=== PATIENT | female | born 1955 | race Caucasian/White ===

== ENCOUNTER 2021-03-31 13:09 | Outpatient (RCR) | payer MEDICARE, OTHER, SELFPAY ==
[2021-03-31] MEDS: Heparin 500 UNITS/5 ML SYRINGE (13:50)
[2021-03-31] MEDS: Normal Saline Flush 10 ML SYR IVP (13:51)
[2021-03-31 13:58] LABS: Abs Immature Grans 0.19 10^3/uL (0.0-0.06); Absolute Basophil Count 0.01 10^3/uL (0.0-0.2); Absolute Lymphocyte Count 0.05 10^3/uL (1.2-3.4); Absolute Neutrophil Count 10.91 10^3/uL (1.2-6.7); Basophils % 0.1; HCT 32.7 % (36.0-46.0); HGB 9.6 g/dL (11.2-15.7); Immature Grans % 1.7; Lymphocytes % 0.4; MCH 20.8 pg (27.0-33.0); MCHC 29.4 % (32.0-36.0); MCV 70.8 fL (80-95); Monocytes % 1.2; Neutrophils % 96.6; Nucleated RBC 0 %; Platelet Count 132 10^3/uL (130-400); RBC 4.62 10^6/uL (3.93-5.22); RDW-SD 46.3 fL; Reticulocyte 1.8 % (0.5-2.4); WBC 11.29 10^3/uL (4.4-10.8)
[2021-03-31 14:00] LABS: Absolute Monocyte Count 0.14 10^3/uL (0.1-0.8)
[2021-03-31 14:17] LABS: ALT 44 U/L (14-59); AST 11 U/L (15-37); Alkaline Phosphatase 54 U/L (46-116); Anion Gap 11.4 mmol/L (3-11); BUN 43 mg/dL (7-18); Bilirubin, Total 1.3 mg/dL (0.2-1.0); CO2 22.6 mmol/L (21.0-32.0); CREATININE 1.1 mg/dL (0.55-1.02); Calcium 8.5 mg/dL (8.5-10.1); Chloride 107 mmol/L (98-107); Estimated GFR 49.54 (mL/min/1.73m2); Glucose 276 mg/dL (74-106); LDH 194 U/L (81-234); Potassium 4.4 mmol/L (3.5-5.1); Sodium 141 mmol/L (136-145); Total Protein 5.7 g/dL (6.4-8.2)
[2021-03-31 14:20] LABS: Basophilic Stippling Present; Diff Comment Diff Reviewed; Microcytosis 1+
== END 2021-04-26 23:59 | disposition home or self-care (01) ==
LOC: INF 13:09
PROVIDERS: Visit Provider Internal Medicine Hematology & Oncology
DX: D64.9 Anemia, unspecified (principal); Z45.2 Encounter for adjustment and management of vascular access device; M31.1 Thrombotic microangiopathy; E83.111 Hemochromatosis due to repeated red blood cell transfusions
CPT/HCPCS: 36591; 80053; 83615; 85025; 85045

== ENCOUNTER 2021-05-12 10:30 | Outpatient (RCR) | payer MEDICARE, OTHER, SELFPAY ==
--- OUTSIDE RECORDS SUMMARY | 2021-04-27 10:50 | XMS_ITS ---
:1955 Author Care Team Providers Name Role Phone DEDRICK CHRISTIANSON MD Primary Care Provider [phone] SHAYY FOREMNA MD Urologist [phone] ALMITA CADENA MD Primary Care Provider [phone] JENNIFER VEGA General Surgeon [phone] Allergies Code Code System Name Reaction Severity Status Onset 2670 RxNorm Codeine ? ? Active ? Penicillins ? ? Active ? Medications Name Status Start Date Stop Date ? ? doxycycline monohydrate 100 mg Completed ? 1 12/03/2018 capsule fluticasone propionate 50 Completed ? 2018 mcg/actuation nasal spray,suspension folic acid Active 09/30/2019 Not available levofloxacin 750 mg tablet Completed ? 10/18 levothyroxine Active 09/30/2019 Not available 50 mcg (two days) and then 75 mcg as well for the rest of the [place] levothyroxine 50 mcg tablet Active 10/18/2019 Not available levothyroxine 75 mcg tablet Active ? Not available oxycodone 5 mg tablet Completed ? 10/18/2019 prednisone 10 mg tablet Active ? Not avai lable Vitamin D3 Active 09/30/2019 Not available Notes: Med Rec 09/30 Problems None recorded. Procedures Date Name Performed by ? 09/29/2019 Cholecystectomy Information not avai lable Notes: acute cholcystitis, chronic ch olecystitis 11/27/1959 Tonsilectomy/adenoids Information not av ailable 10/01/2019 MR, Cholangiopancreatogram, W/o [facility] Radiology (Internal) Contrast [address] [place] [address] (Work Place) 10/03/2019 US, Renal [facility] Radiology (Internal) [address] [place] [address] (Work Place) Results Lab Results Date Name Specimen Result Interpretation Description Value Range Status Address ? 11/25/2019 Neutrophil BLD - Anc-manual 9.41 ? Etta melton [place] Count, 10*3/uL [facility] Lab (Anc), Blood (Int ernal): [address] 11/25/2019 Differential BLD High Polys 95 % 40-75 % Final [facility] L ab (Internal) : [address] ? ? BLD - Bands 1 % 0-5 % Final [facility] L ab (Internal) : [address] [place] ? ? BLD Low Lymphs 4 % 20-50 % Final [facility] L ab (Internal) : [address] ? ? BLD Low Jerauld 0 % 2-10 % Final [facility] L ab (Internal) : [address] ? ? BLD - Eos 0 % 0-6 % Final [facility] L ab (Internal) : [address] ? ? BLD - Baso 0 % 0-1 % Final [facility] L ab (Internal) : [address] ? ? BLD - Atyp Lymph 0 % ? Final [facility] L ab (Internal) : [address] ? ? BLD - Plts, Est. adequate adequate Final [facility] L ab (Internal) : [address] ? ? BLD ABNORMAL RBC abnormal normal Final [facility] L ab (Internal) : [address] ? ? BLD - Aniso moderate ? Final [facility] L ab (Internal) : [address] ? ? BLD - Hypo small ? Final [facility] L ab (Internal) : [address] ? ? BLD - Micro small ? Final [facility] L ab (Internal) : [address] ? ? BLD - Polychrom occasional ? Final No [facility] L ab (Internal) : [address] ? ? BLD - Schist rare ? Final [facility] L ab (Internal) : [address] ? ? BLD - Target occasional ? Final [facility] L ab (Internal) : [address] ? ? BLD - Teardrop occasional ? Final [facility] L ab (Internal) : [address] ? ? BLD - Oval small ? Final [facility] L ab (Internal) : [address] 11/25/2019 Ldh, Serum S - Ldh 470 U/L 313-618 Final [place] or Plasma U/L [facility] L ab (Internal) : [address] 11/25/2019 CMP, Serum S High g/r 119 mg/dL 74-106 Final [place] or Plasma mg/dL [facility] L ab (Internal) : [address] ? ? S High Bun 27 mg/dL 7-17 Final [place] mg/dL [facility] L ab (Internal) : [address] ? ? S - Crea 0.90 mg/dL 0.52-1.0 Final Nort h 4 mg/dL [facility] L ab (Internal) : [address] ? ? S - Ca 9.3 mg/dL 8.4-10.2 Final [place] mg/dL [facility] L ab (Internal) : [address] ? ? S - Na 141 mmol/L 137-145 Final [place] mmol/L [facility] L ab (Internal) : [address] ? ? S - K 4.3 mmol/L 3.5-5.1 Final [place] mmol/L [facility] L ab (Internal) : [address] ? ? S - Cl 106 mmol/L 98-107 Final [place] mmol/L [facility] L ab (Internal) : [address] ? ? S - Tco2 24.0 mmol/L 22.0-30. Final Nor th 0 mmol/L [facility] Hospital L ab (Internal) : [address] ? ? S - Tp 7.2 g/dL 6.3-8.2 Final [place] g/dL [facility] L ab (Internal) : [address] ? ? S - Alb 3.8 g/dL 3.5-5.0 Final [place] g/dL [facility] L ab (Internal) : [address] ? ? S - Tbil 0.9 mg/dL 0.2-1.3 Final [place] mg/dL [facility] L ab (Internal) : [address] ? ? S - Alp 61 U/L 38-126 Final [place] U/L [facility] L ab (Internal) : [address] ? ? S - Alt (Sgpt) 27 U/L 9-52 U/L [facility] (Internal[facility] : [address] ? ? S - Ast (Sgot) 22 U/L 14-36 Final [place] U/L [facility] L ab (Internal) : [address] 11/25/2019 CBC W/ Auto BLD - Wbc 9.8 10*3/uL 5.0-10.0 F inal [place] Diff 10*3/uL [facility] (Internal) : [address] ? ? BLD High Rbc 6.00 4.10-5.3 Final [place] 10*6/uL 0 [facility] 10*6/uL Hospital Lab (Internal) : [address] ? ? BLD Low Hgb 11.4 g/dL 12.0-16. Final [place] 0 g/dL [facility] L ab (Internal) : [address] ? ? BLD - Hct 39.5 % 37.0-47. Final [place] 0 % [facility] L ab (Internal) : [address] ? ? BLD Low Mcv 65.8 fL 80.0-96. Final [place] 0 fL [facility] L ab (Internal) : [address] ? ? BLD Low Mch 19.0 pg 26.0-32. Final [facility] 0 pg [facility] (Internal) : [address] ? ? BLD Low Mchc 28.9 g/dL 31.0-35. Final [place] 0 g/dL [facility] L ab (Internal) : [address] ? ? BLD High Rdw 19.9 % 11.5-14. Final [place] 5 % [facility] L ab (Internal) : [address] ? ? BLD - Plt 210 10*3/uL 130-450 Final Nort h 10*3/uL [facility] (Internal) : [address] 10/07/2019 CBC W/ Auto BLD - Wbc 9.9 10*3/uL 5.0-10.0 F inal [place] Diff 10*3/uL [facility] L [facility] (Internal) : [address] ? ? BLD - Rbc 5.13 4.10-5.3 Final [place] 10*6/uL 0 [facility] 10*6/uL Hospital Lab (Internal) : [address] ? ? BLD Low Hgb 9.6 g/dL 12.0-16. Final [facility] 0 g/dL [facility] L [facility] (Internal) : [address] ? ? BLD Low Hct 31.6 % 37.0-47. Final [facility] 0 % [facility] (Internal) : [address] ? ? BLD Low Mcv 61.6 fL 80.0-96. Final [facility] 0 fL [facility] L [facility] (Internal) : [address] ? ? BLD Low Mch 18.7 pg 26.0-32. Final [facility] 0 pg [facility] L [facility] (Internal) : [address] ? ? BLD Low Mchc 30.4 g/dL 31.0-35. Final [place] 0 g/dL [facility] L ab (Internal) : [address] ? ? BLD High Rdw 19.0 % 11.5-14. Final [facility] 5 % [facility] (Internal) : [address] ? ? BLD Low Plt 106 10*3/uL 130-450 Final Nort h 10*3/uL [facility] L [facility] (Internal) : [address] ? ? BLD - Anc 7.31 ? Final [facility] 10*3/uL [facility] (Internal) : [address], [address] ? ? BLD - Neutro 74.2 % 40.0-75. Final [place] 0 % [facility] L ab (Internal) : [address], [address] ? ? BLD Low Lymph 14.9 % 20.0-50. Final [facility] 0 % [facility] (Internal) : [address], [place] ? ? BLD - Jerauld 9.2 % 2.0-10.0 Final [facility] L ab (Internal) : [address] ? ? BLD Low Eos 0.1 % 1.0-6.0 [facility] L ab (Internal) : [address] ? ? BLD - Baso 0.1 % 0.0-1.0 Final [facility] L ab (Internal) : [address] ? ? BLD High Ig 1.5 % 0.0-0.9 Final [facility] L ab (Internal) : [address] 10/07/2019 Retic Count, BLD - Retic 2.1 % 0.5-2.4 Final [facility] L ab (Internal) : [address] 10/07/2019 RBC BLD - Aniso small ? Final [place] Morphology, Count [facility] L ab (Internal) : [address] ? ? BLD - Micro small ? Final [facility] L ab (Internal) : [address] ? ? BLD - Polychrom rare ? Final [facility] L ab (Internal) : [address] ? ? BLD - Schist rare ? Final [facility] L ab (Internal) : [address] ? ? BLD - Sphrcyt rare ? Final [facility] L ab (Internal) : [address] ? ? BLD - Target rare ? Final [facility] L ab (Internal) : [address] ? ? BLD - Teardrop occasional ? Final [facility] L ab (Internal) : [address] ? ? BLD - Oval occasional ? Final [facility] L ab (Internal) : [address] 10/07/2019 CMP, Serum S - g/r 92 mg/dL 74-106 Final [place] or Plasma mg/dL [facility] L ab (Internal) : [address] ? ? S High Bun 28 mg/dL 7-17 Final [place] mg/dL [facility] L ab (Internal) : [address] ? ? S - Crea 1.00 mg/dL 0.52-1.0 Final Nort h 4 mg/dL [facility] L [facility] (Internal) : [address] ? ? S - Ca 9.7 mg/dL 8.4-10.2 Final [facility] mg/dL [facility] (Internal) : [address] ? ? S Low Na 136 mmol/L 137-145 Final [place] mmol/L [facility] L ab (Internal) : [address] ? ? S - K 3.7 mmol/L 3.5-5.1 Final [facility] mmol/L [facility] (Internal) : [address] ? ? S - Cl 103 mmol/L 98-107 Final [place] mmol/L [facility] L ab (Internal) : [address] ? ? S - Tco2 26.0 mmol/L 22.0-30. Final [facility] 0 mmol/L [facility] L ab (Internal) : [address] ? ? S - Tp 8.2 g/dL 6.3-8.2 Final [facility] g/dL [facility] (Internal) : [address] ? ? S - Alb 3.8 g/dL 3.5-5.0 Final [place] g/dL [facility] L ab (Internal) : [address] ? ? S - Tbil 1.2 mg/dL 0.2-1.3 Final [place] mg/dL [facility] L ab (Internal) : [address] ? ? S - Alp 108 U/L 38-126 Final [place] U/L [facility] L ab (Internal) : [address] ? ? S - Alt (Sgpt) 44 U/L 9-52 U/L Final [facility] (Internal) : [address] ? ? S - Ast (Sgot) 32 U/L 14-36 Final [place] U/L [facility] L ab (Internal) : [address] 10/07/2019 Ldh, Serum S - Ldh 482 U/L 313-618 Final [place] or Plasma U/L [facility] L ab (Internal) : [address] 10/04/2019 CBC W/ Auto BLD - Wbc 7.2 10*3/uL 5.0-10.0 F inal [place] Diff 10*3/uL [facility] L ab (Internal) : [address] ? ? BLD High Rbc 5.42 4.10-5.3 Final [place] 10*6/uL 0 [facility] 10*6/uL Hospital Lab (Internal) : [address] ? ? BLD Low Hgb 10.0 g/dL 12.0-16. Final [place] 0 g/dL [facility] L ab (Internal) : [address] ? ? BLD Low Hct 33.5 % 37.0-47. Final [place] 0 % [facility] L ab (Internal) : [address] ? ? BLD Low Mcv 61.8 fL 80.0-96. Final [place] 0 fL [facility] L ab (Internal) : [address] ? ? BLD Low Mch 18.5 pg 26.0-32. Final [place] 0 pg [facility] L ab (Internal) : [address] ? ? BLD Low Mchc 29.9 g/dL 31.0-35. Final [place] 0 g/dL [facility] L ab (Internal) : [address] ? ? BLD High Rdw 18.0 % 11.5-14. Final [place] 5 % [facility] L ab (Internal) : [address] ? ? BLD Low Plt 66 10*3/uL 130-450 Final [place] 10*3/uL [facility] L ab (Internal) : [address] ? ? BLD - Anc 5.47 ? Final [place] 10*3/uL [facility] L ab (Internal) : [address] ? ? BLD High Neutro 76.3 % 40.0-75. Final [place] 0 % [facility] L ab (Internal) : [address] ? ? BLD Low Lymph 11.4 % 20.0-50. Final [place] 0 % [facility] L ab (Internal) : [address] ? ? BLD - Jerauld 7.8 % 2.0-10.0 Final [facility] L ab (Internal) : [address] ? ? BLD - Eos 3.3 % 1.0-6.0 Final [facility] L ab (Internal) : [address] ? ? BLD - Baso 0.4 % 0.0-1.0 Final [facility] L ab (Internal) : [address] ? ? BLD - Ig 0.8 % 0.0-0.9 Final [facility] L ab (Internal) : [address] 10/04/2019 Urinalysis, UR - UA-color yellow pale Final [place] Dipstick, yellow [facility] Reflex Micro Hosp ital Lab (Internal) : [address] ? ? UR ABNORMAL UA-appear hazy clear Final [facility] L ab (Internal) : [address] ? ? UR - UA-spec 1.010 1.003-1. Final [place] [facility] [address] [place] [address] L ab (Internal) : [address] ? ? UR - UA-pH 6.0 [pH] 4.6-8.0 Final [place] [pH] [facility] L ab (Internal) : [address] ? ? UR - UA-leuk negative negative Final Nort h [facility] L ab (Internal) : [address] ? ? UR - UA-nitrite negative negative Final N orth [facility] L ab (Internal) : [address] ? ? UR ABNORMAL UA-prot trace negative Final [facility] L ab (Internal) : [address] ? ? UR - UA-gluc negative negative Final [facility] L ab (Internal) : [address] ? ? UR - UA-ketone negative negative Final No rth [facility] L ab (Internal) : [address] ? ? UR ABNORMAL UA-urobil positive normal [facility] [address] ? ? UR - UA-bili negative negative Final [facility] (Internal) : [address] ? ? UR ABNORMAL UA-blood large negative Final [facility] Hospital L ab (Internal) : [address] 10/04/2019 Urinalysis, UR - UA-WBC 0-3 [hpf] 0-3 [facility] Microscopic [hpf] Count Hospital L ab (Internal) : [address] ? ? UR ABNORMAL UA-RBC 50-100 0-2 Final [place] [hpf] [hpf] [facility] Hospital L ab (Internal) : [address] ? ? UR - UA-bacteri none seen none Final No rth a [hpf] seen [facility] [hpf[facility] L ab (Internal) : [address] ? ? UR - UA-epithel rare [hpf] none Final N orth ial seen [facility] [hpf] Hospital L ab (Internal) : [address] ? ? UR - UA-mucus none seen none Final Nort h [hpf] seen [facility] [hpf] Hospital L ab (Internal) : [address] 10/04/2019 RBC BLD - Aniso small ? Final [place] Morphology, Count Blood Hospital L ab (Internal) : [address] ? ? BLD - Micro small ? Final [facility] ab (Internal) : [address] ? ? BLD - Polychrom rare ? Final [facility] ab (Internal) : [address] ? ? BLD - Schist occasional ? Final [facility] L ab (Internal) : [address] ? ? BLD - Sphrcyt rare ? Final [facility] ab (Internal) : [address] ? ? BLD - Teardrop occasional ? Final [facility] Hospital L ab (Internal) : [address] ? ? BLD - Oval occasional ? Final [facility] L ab (Internal) : [address] 10/04/2019 CMP, Serum S - g/r 104 mg/dL 74-106 Final [place] or Plasma mg/dL [facility] Hospital L ab (Internal) : [address] [place] ? ? S High Bun 20 mg/dL 7-17 Final [facility] mg/dL [facility] (Internal) : [address] ? ? S - Crea 1.00 mg/dL 0.52-1.0 Final Nort h 4 mg/dL [facility] L ab (Internal) : [address] ? ? S - Ca 9.6 mg/dL 8.4-10.2 Final [facility] mg/dL [facility] L ab (Internal) : [address] ? ? S Low Na 135 mmol/L 137-145 Final [place] mmol/L [facility] L ab (Internal) : [address] ? ? S - K 3.6 mmol/L 3.5-5.1 Final [place] mmol/L [facility] L ab (Internal) : [address] ? ? S - Cl 100 mmol/L 98-107 Final [place] mmol/L [facility] L ab (Internal) : [address] ? ? S - Tco2 27.0 mmol/L 22.0-30. Final Nor th 0 mmol/L [facility] Hospital L ab (Internal) : [address] ? ? S - Tp 8.1 g/dL 6.3-8.2 Final [place] g/dL [facility] Hospital L ab (Internal) : [address] ? ? S - Alb 3.7 g/dL 3.5-5.0 Final [place] g/dL [facility] Hospital L ab (Internal) : [address] ? ? S High Tbil 1.8 mg/dL 0.2-1.3 Final [place] mg/dL [facility] Hospital L ab (Internal) : [address] ? ? S High Alp 154 U/L 38-126 Final [place] U/L [facility] L ab (Internal) : [address] ? ? S High Alt (Sgpt) 78 U/L 9-52 U/L Final [facility] (Internal) : [address] ? ? S High Ast (Sgot) 77 U/L 14-36 Final [place] U/L [facility] L ab (Internal) : [address] 10/02/2019 CMP, Serum S High g/r 113 mg/dL 74-106 Final [place] or Plasma mg/dL [facility] L ab (Internal) : [address] ? ? S - Bun 16 mg/dL 7-17 Final [place] mg/dL [facility] L ab (Internal) : [address] ? ? S - Crea 0.90 mg/dL 0.52-1.0 Final Nort h 4 mg/dL [facility] L ab (Internal) : [address] ? ? S - Ca 9.7 mg/dL 8.4-10.2 Final [facility] mg/dL [facility] L [facility] (Internal) : [address] ? ? S Low Na 136 mmol/L 137-145 Final [place] mmol/L [facility] L ab (Internal) : [address] ? ? S - K 3.7 mmol/L 3.5-5.1 Final [facility] mmol/L [facility] L ab (Internal) : [address] ? ? S - Cl 99 mmol/L 98-107 Final [place] mmol/L [facility] Hospital L ab (Internal) : [address] ? ? S - Tco2 28.0 mmol/L 22.0-30. Final Nor th 0 mmol/L [facility] L ab (Internal) : [address] ? ? S High Tp 8.7 g/dL 6.3-8.2 Final [facility] g/dL [facility] L ab (Internal) : [address] ? ? S - Alb 3.9 g/dL 3.5-5.0 Final [facility] g/dL [facility] L ab (Internal) : [address] ? ? S High Tbil 2.2 mg/dL 0.2-1.3 Final [facility] mg/dL [facility] L ab (Internal) : [address] ? ? S High Alp 128 U/L 38-126 Final [facility] U/L [facility] L ab (Internal) : [address] ? ? S High Alt (Sgpt) 65 U/L 9-52 U/L Final [facility] L ab (Internal) : [address] ? ? S High Ast (Sgot) 95 U/L 14-36 Final [place] U/L [facility] Hospital L ab (Internal) : [address] 10/02/2019 CBC W/ Auto BLD - Wbc 9.2 10*3/uL 5.0-10.0 F inal [place] Diff 10*3/uL [facility] Hospital L ab (Internal) : [address] ? ? BLD High Rbc 5.90 4.10-5.3 Final [place] 10*6/uL 0 [facility] 10*6/uL Hospital Lab (Internal) : [address] ? ? BLD Low Hgb 10.9 g/dL 12.0-16. Final [place] 0 g/dL [facility] Hospital L ab (Internal) : [address] ? ? BLD Low Hct 36.5 % 37.0-47. Final [place] 0 % [facility] L ab (Internal) : [address] ? ? BLD Low Mcv 61.9 fL 80.0-96. Final [place] 0 fL [facility] L ab (Internal) : [address] ? ? BLD Low Mch 18.5 pg 26.0-32. Final [place] 0 pg [facility] L ab (Internal) : [address] ? ? BLD Low Mchc 29.9 g/dL 31.0-35. Final [place] 0 g/dL [facility] Hospital L ab (Internal) : [address] ? ? BLD High Rdw 18.2 % 11.5-14. Final [place] 5 % [facility] Hospital L ab (Internal) : [address] ? ? BLD Low Plt 76 10*3/uL 130-450 Final [place] 10*3/uL [facility] Hospital L ab (Internal) : [address] 10/02/2019 Differential BLD High Polys 86 % 40-75 % Final [facility] L ab (Internal) : [address] ? ? BLD - Bands 0 % 0-5 % Final [facility] L ab (Internal) : [address] ? ? BLD Low Lymphs 5 % 20-50 % [facility] (Internal) : [address] ? ? BLD - Jerauld 7 % 2-10 % Final [facility] L ab (Internal) : [address] ? ? BLD - Eos 2 % 0-6 % Final [facility] L ab (Internal) : [address] ? ? BLD - Baso 0 % 0-1 % Final [facility] L ab (Internal) : [address] ? ? BLD - Atyp Lymph 0 % ? Final [facility] L ab (Internal) : [address] ? ? BLD ABNORMAL Plts, Est. low adequate Final [facility] L ab (Internal) : [address] ? ? BLD ABNORMAL RBC abnormal normal Final [facility] L ab (Internal) : [address] ? ? BLD - Aniso moderate ? Final [facility] L ab (Internal) : [address] ? ? BLD - Micro large ? Final [facility] L ab (Internal) : [address] ? ? BLD - Schist occasional ? Final [facility] L ab (Internal) : [address] 10/02/2019 Neutrophil BLD - Anc-manual 7.92 ? Etta geronimo [place] Count, 10*3/uL [facility] Lab (Anc), Blood (Int ernal): [address] 10/01/2019 CBC W/ Auto BLD - Wbc 8.1 10*3/uL 5.0-10.0 F inal [place] Diff 10*3/uL [facility] Hospital L ab (Internal) : [address] ? ? BLD High Rbc 5.86 4.10-5.3 Final [place] 10*6/uL 0 [facility] 10*6/uL Hospital Lab (Internal) : [address] ? ? BLD Low Hgb 10.8 g/dL 12.0-16. Final [place] 0 g/dL [facility] Hospital L ab (Internal) : [address] ? ? BLD Low Hct 36.5 % 37.0-47. Final [place] 0 [facility] L ab (Internal) : [address] ? ? BLD Low Mcv 62.3 fL 80.0-96. Final [facility] 0 fL [facility] L ab (Internal) : [address] ? ? BLD Low Mch 18.4 pg 26.0-32. Final [facility] 0 pg [facility] L ab (Internal) : [address] ? ? BLD Low Mchc 29.6 g/dL 31.0-35. Final [place] 0 g/dL [facility] L ab (Internal) : [address] ? ? BLD High Rdw 18.0 % 11.5-14. Final [facility] 5 % [facility] L ab (Internal) : [address] ? ? BLD Low Plt 92 10*3/uL 130-450 Final [place] 10*3/uL [facility] L ab (Internal) : [address] 10/01/2019 CMP, Serum S High g/r 110 mg/dL 74-106 Final [place] or Plasma mg/dL [facility] L ab (Internal) : [address] ? ? S - Bun 14 mg/dL 7-17 Final [place] mg/dL [facility] L ab (Internal) : [address] ? ? S - Crea 0.90 mg/dL 0.52-1.0 Final Nort h 4 mg/dL [facility] L ab (Internal) : [address] ? ? S - Ca 9.6 mg/dL 8.4-10.2 Final [facility] mg/dL [facility] L ab (Internal) : [address] ? ? S - Na 138 mmol/L 137-145 Final [place] mmol/L [facility] L ab (Internal) : [address] ? ? S - K 3.6 mmol/L 3.5-5.1 Final [facility] mmol/L [facility] L ab (Internal) : [address] ? ? S - Cl 101 mmol/L 98-107 Final [place] mmol/L [facility] L ab (Internal) : [address] ? ? S - Tco2 30.0 mmol/L 22.0-30. Final Nor th 0 mmol/L [facility] L ab (Internal) : [address] ? ? S High Tp 8.6 g/dL 6.3-8.2 Final [place] g/dL [facility] L ab (Internal) : [address] ? ? S - Alb 3.8 g/dL 3.5-5.0 Final [place] g/dL [facility] L ab (Internal) : [address] ? ? S High Tbil 1.6 mg/dL 0.2-1.3 Final [place] mg/dL [facility] L ab (Internal) : [address] ? ? S - Alp 96 U/L 38-126 Final [place] U/L [facility] L ab (Internal) : [address] ? ? S - Alt (Sgpt) 44 U/L 9-52 U/L Final [facility] [facility] L [facility] (Internal) : [address] ? ? S High Ast (Sgot) 71 U/L 14-36 Final [place] U/L [facility] L ab (Internal) : [address] 10/01/2019 Differential BLD High Polys 86 % 40-75 % Final [facility] L [facility] (Internal) : [address] ? ? BLD - Bands 0 % 0-5 % Final [facility] L ab (Internal) : [address] ? ? BLD Low Lymphs 9 % 20-50 % Final [facility] L ab (Internal) : [address] ? ? BLD - Jerauld 4 % 2-10 % Final [facility] L ab (Internal) : [address] ? ? BLD - Eos 1 % 0-6 % Final [facility] L ab (Internal) : [address] ? ? BLD - Baso 0 % 0-1 % Final [facility] L ab (Internal) : [address] ? ? BLD - Atyp Lymph 0 % ? Final [facility] L ab (Internal) : [address] ? ? BLD ABNORMAL Plts, Est. low adequate Final [facility] L ab (Internal) : [address] ? ? BLD ABNORMAL RBC abnormal normal Final [facility] L ab (Internal) : [address] ? ? BLD - Aniso moderate ? Final [facility] L ab (Internal) : [address] t ? ? BLD - Hypo occasional ? Final [facility] L ab (Internal) : [address] t ? ? BLD - Poik occasional ? Final [place] [hpf] [facility] L ab (Internal) : [address] t ? ? BLD - Polychrom rare ? Final [facility] L ab (Internal) : [address] t ? ? BLD - Schist occasional ? Final [facility] L ab (Internal) : [address] t ? ? BLD - Teardrop occasional ? Final [facility] L ab (Internal) : [address] t 10/01/2019 Neutrophil BLD - Anc-manual 6.97 ? Etta l [place] Count, 10*3/uL [facility] Lab (Anc), Blood (Int ernal): [address] 09/30/2019 CMP, Serum S - g/r 98 mg/dL 74-106 Final [place] or Plasma mg/dL [facility] L ab (Internal) : [address] t ? ? S - Bun 13 mg/dL 7-17 Final [place] mg/dL [facility] L ab (Internal) : [address] t ? ? S - Crea 0.90 mg/dL 0.52-1.0 Final [place] h 4 mg/dL [facility] L ab (Internal) : [address] t ? ? S - Ca 9.2 mg/dL 8.4-10.2 Final [place] mg/dL [facility] L ab (Internal) : [address] t ? ? S - Na 138 mmol/L 137-145 Final [place] mmol/L [facility] L ab (Internal) : [address] t ? ? S - K 3.8 mmol/L 3.5-5.1 Final [place] mmol/L [facility] L ab (Internal) : [address] t ? ? S - Cl 104 mmol/L 98-107 Final [place] mmol/L [facility] L ab (Internal) : [address] ? ? S - Tco2 26.0 mmol/L 22.0-30. Final [facility] th 0 mmol/L [facility] L ab (Internal) : [address] ? ? S - Tp 8.0 g/dL 6.3-8.2 Final [place] g/dL [facility] L ab (Internal) : [address] ? ? S - Alb 3.6 g/dL 3.5-5.0 Final [place] g/dL [facility] L ab (Internal) : [address] ? ? S High Tbil 1.5 mg/dL 0.2-1.3 Final [place] mg/dL [facility] L ab (Internal) : [address] ? ? S - Alp 87 U/L 38-126 Final [place] U/L [facility] L ab (Internal) : [address] ? ? S - Alt (Sgpt) 39 U/L 9-52 U/L Final [facility] L ab (Internal) : [address] ? ? S High Ast (Sgot) 65 U/L 14-36 Final [place] U/L [facility] L ab (Internal) : [address] 09/30/2019 CBC W/ Auto BLD - Wbc 8.5 10*3/uL 5.0-10.0 F inal [place] Diff 10*3/uL [facility] (Internal) : [address] ? ? BLD High Rbc 5.87 4.10-5.3 Final [place] 10*6/uL 0 [facility] 10*6[facility]uL [facility] Lab (Internal) : [address] ? ? BLD Low Hgb 10.8 g/dL 12.0-16. Final [place] 0 g/dL [facility] L ab (Internal) : [address] ? ? BLD Low Hct 36.5 % 37.0-47. Final [place] 0 % [facility] L ab (Internal) : [address] ? ? BLD Low Mcv 62.2 fL 80.0-96. Final [place] 0 fL [facility] (Internal) : [address] t ? ? BLD Low Mch 18.4 pg 26.0-32. Final [place] 0 pg [facility] L ab (Internal) : [address] t ? ? BLD Low Mchc 29.6 g/dL 31.0-35. Final [place] 0 g/dL [facility] L ab (Internal) : [address] t ? ? BLD High Rdw 18.2 % 11.5-14. Final [place] 5 % [facility] L ab (Internal) : [address] t ? ? BLD Low Plt 109 10*3/uL 130-450 Final Nort h 10*3/uL [facility] L ab (Internal) : [address] t 09/30/2019 Differential BLD High Polys 82 % 40-75 % Final [place] L [facility] (Internal) : [address] t ? ? BLD - Bands 0 % 0-5 % Final [facility] L ab (Internal) : [address] t ? ? BLD Low Lymphs 6 % 20-50 % Final [facility] L ab (Internal) : [address] t ? ? BLD High Jerauld 12 % 2-10 % Final [facility] L ab (Internal) : [address] t ? ? BLD - Eos 0 % 0-6 % Final [facility] L ab (Internal) : [address] t ? ? BLD - Baso 0 % 0-1 % Final [facility] L ab (Internal) : [address] t ? ? BLD - Atyp Lymph 0 % ? Final [facility] L [facility] (Internal) : [address] t ? ? BLD - Plts, Est. adequate adequate Final [facility] L ab (Internal) : [address] t ? ? BLD ABNORMAL RBC abnormal normal Final [facility] L ab (Internal) : [address] t ? ? BLD - Aniso moderate ? Final [facility] L [facility] (Internal) : [address] t ? ? BLD - Micro large ? Final [facility] L ab (Internal) : [address] ? ? BLD - Polychrom rare ? Final [facility] L ab (Internal) : [address] ? ? BLD - Schist occasional ? Final [facility] L ab (Internal) : [address] ? ? BLD - Teardrop occasional ? Final [facility] L ab (Internal) : [address] 09/30/2019 Neutrophil BLD - Anc-manual 6.94 ? Etta melton [place] Count, 10*3/uL [facility] Lab (Anc), Blood (Int ernal): [address] 09/29/2019 Pathology TISS - Report results ? Final N orth Study [facility] L ab (Internal) : [address] Past Encounters None recorded. Social History Tobacco Smoking Status Never Smoker Vaccine List None recorded. Plan of Care Reminders Provider Appointments None ? ? recorded. Lab None ? ? recorded. Referral None ? ? recorded. Procedures None ? ? recorded. Surgeries None ? ? recorded. Imaging None ? ? recorded. Vitals 10/18/2019 02:15PM Office 15 Height Weight BMI Blood Pressure 157.48 cm 61.23 kg 24.7 kg/m2 144/74 mm[Hg] 10/03/2019 12:40PM Follow Up 40 Weight Blood Pressure 61.23 kg 146/82 mm[Hg]
[2021-05-12] MEDS: Heparin 500 UNITS/5 ML SYRINGE (10:58)
[2021-05-12] MEDS: Normal Saline Flush 10 ML SYR IVP (10:58)
[2021-05-12 11:05] LABS: Bilirubin Negative (Negative); Blood Trace-intact (Negative); Clarity Sl Cloudy (Clear); Glucose Negative (Negative); Ketones Negative (Negative); Leukocyte Esterase Negative (Negative); Nitrite Positive (Negative); Specific Gravity 1.025 (1.005-1.025); Urobilinogen 0.2 EU/dL (Up TO 0.2); pH 5.5 (5-8)
[2021-05-12 11:10] LABS: HCT 34.3 % (36.0-46.0); HGB 10.2 g/dL (11.2-15.7); MCH 20.3 pg (27.0-33.0); MCHC 29.7 % (32.0-36.0); MCV 68.3 fL (80-95); Nucleated RBC 0 %; Platelet Count 83 10^3/uL (130-400); RBC 5.02 10^6/uL (3.93-5.22); RDW 16.9 % (11.7-14.6); RDW-SD 40.6 fL; WBC 3.48 10^3/uL (4.4-10.8)
[2021-05-12 11:13] LABS: Bacteria Many HPF (Negative); Crystals Negative HPF (Negative); Epithelial Cells Few HPF (Negative); Mucus Trace (Negative)
[2021-05-12 11:14] LABS: C & S Indicated? Yes; Casts 0-2 Fine Granular LPF (Negative)
[2021-05-12 11:24] LABS: LDH 308 U/L (81-234)
[2021-05-12 11:29] LABS: Absolute Lymphocyte Count 0.07 10^3/uL (1.2-3.4); Absolute Monocyte Count 0.07 10^3/uL (0.1-0.8); Absolute Neutrophil Count 3.34 10^3/uL (1.2-6.7); Bands % 7; Diff Comment Manual Differential; Hypochromasia 1+; Microcytosis 2+
== END 2021-05-26 23:59 | disposition home or self-care (01) ==
LOC: INF 10:30
PROVIDERS: Nurse Practitioner Family; Visit Provider Internal Medicine Hematology & Oncology
DX: M31.1 Thrombotic microangiopathy (principal); D64.9 Anemia, unspecified; Z45.2 Encounter for adjustment and management of vascular access device; E83.111 Hemochromatosis due to repeated red blood cell transfusions
CPT/HCPCS: 36591; 87040; 87077; 81003; 81015; 83615; 85025; 87086; 87186

== ENCOUNTER 2021-05-12 17:06 | Outpatient (CLI) | payer MEDICARE, OTHER, SELFPAY ==
--- NOTE | 2021-05-12 | DI.RAD_ITS ---
Exam(s) XR CHEST 2V PA LATERAL EXAM: XR CHEST 2V PA LATERAL CLINICAL HISTORY: HIGH DOSE STEROID USE FOR TTP, FEVER IN LAST 24 HRS. TECHNIQUE: 2D digital imaging was performed. COMPARISON: None FINDINGS: Heart size is normal. The mediastinum is not widened. Distal tip of the right supra clavi in Port-A-Cath is in the lower SVC There are no infiltrates nor pleural effusions. No pulmonary edema. No pneumothorax. IMPRESSION: No acute pulmonary findings.Port-A-Cath appears to be in satisfactory position. DATA REPOSITORY: RADIATION DOSE DELIVERED:
== END 2021-05-12 17:26 ==
PROVIDERS: Visit Provider Nurse Practitioner Family
DX: M31.1 Thrombotic microangiopathy (principal)
CPT/HCPCS: 36591; 87040; 87077; 71046; 81003; 81015; 83615; 85025; 87086; 87186